=== PATIENT | male | born 1955 | race Caucasian/White ===

== ENCOUNTER 2017-01-23 17:39 | Inpatient (IN) | payer BC ==
--- NOTE | ~2017-01-23 | HP ---
History And Physical [place] [id number] [facility] [place]. [address] NAME: WANDER AMAYA : 55 STATUS : ADM IN [facility]#: [id number] AGE: 61 ADM/REG DATE : 01/23/17 MR#: [id number] REPORT SERV DATE: 01/23/17 DICTATED BY: MARIANA YANG DATE: 01/23/17 REPORT STATUS : Draft TRANSCRIBED BY: MODL DATE: 01/23/17 DATE OF ADMISSION: 01/23/2017 HISTORY OF PRESENT ILLNESS: This is a very pleasant 61-year-old male, who presented to [facility] because of severe left lower extremity cellulitis which started according to the patient yesterday. He said that it started suddenly. The whole leg is bright red and he said that he was warm to touch. He was feeling feverish and chills, although he did not measure his temperature. The patient said that he had some nausea yesterday when he ate some meat in a restaurant, but he did not have any diarrhea and his nausea resolved now. He denies any wounds on his leg. He denies any scratches or any other cuts on the leg. He had similar-type cellulitis in September when he was hospitalized under the care of Dr. Bernard, and he was discharged on October. There is an admission in September and then there is another admission in October. At that time, also he had left lower extremity cellulitis. The patient denies any chest pain. No shortness of breath. No documented fever. No rash except redness on his left lower extremity. No headache. No abdominal pain. All 14-point review of system done and negative except what is stated in the history of present illness. He did not have diarrhea as well. PAST MEDICAL HISTORY: Known for cirrhosis of the liver with chronic edema, chronically on diuretics, as well as it includes history of cerebrovascular accident in the past secondary to fall five years ago when he had cerebral hemorrhage. He had cerebral hemorrhage five years ago because he fell from bed and he had some problems with his eye on the left side, after which he had surgery on his left eye. Right now, he does not have any deficit from that cerebral hemorrhage. The patient has cirrhosis of the liver secondary to alcohol and his liver cirrhosis doctor is Dr. Nieves. Other medical problems include recurrent cellulitis, history of diarrhea, but he is on lactulose. There is a questionable history of C difficile. According to last discharge of Dr. 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 It was recommended not to be given again. At that time, the patient was discharged on Keppra, but the patient is not taking Keppra anymore and he cannot remember if he has to be on Keppra. He also reported that he did not have any seizure activity anymore. He is on midodrine for orthostatic hypotension, although he does not know why he takes this medicine. He tells that Dr. Nieves prescribed it. He has chronic thrombocytopenia secondary to liver disease. PAST SURGICAL HISTORY: Includes cholecystectomy. ALLERGIES: HE HAS INTOLERANCE OF MORPHINE. History And Physical [address] [address] NAME: WANDER AMAYA : 55 STATUS : ADM IN [facility]#: [id number] AGE: 61 ADM/REG DATE : 01/23/17 MR#: [id number] REPORT SERV DATE: 01/23/17 DICTATED BY: MARIANA YANG DATE: 01/23/17 REPORT STATUS : Draft TRANSCRIBED BY: MICHELLE DATE: 01/23/17 SOCIAL HISTORY: No history of smoking. History of alcohol abuse in the past, not using alcohol any more. Denies any use of recreational drugs, and he is not on any pain medications any more. FAMILY HISTORY: Father had skin cancer and cerebral hemorrhage. Mother had a heart attack. HOME MEDICATIONS: Include vitamin D 5000 units daily, Lasix 40 mg p.o. b.i.d., lactulose 15 mL daily, midodrine 5 mg three times, potassium chloride 20 mEq daily, and spironolactone 100 mg p.o. twice a day. PHYSICAL EXAMINATION: GENERAL: Obese male, not in acute distress, resting quietly. VITAL SIGNS: Blood pressure 141/72, temperature 97.9, heart rate 95, respiratory rate 20, and oxygen saturation 97% on room air. HEENT: Head atraumatic, normocephalic. Conjunctivae clear. Pupils are equal and reactive to light and accommodation. Extraocular muscles are intact. NECK: Supple. Trachea is midline. No supraclavicular or cervical lymphadenopathy. LUNGS: Clear to auscultation bilaterally with slightly decreased respiratory effort. CARDIOVASCULAR SYSTEM: Regular rate and rhythm. Point of maximal impulse not displaced. ABDOMEN: Obese soft, nontender, nondistended. Positive normoactive bowel sounds. EXTREMITIES: Left lower extremity, severe erythema on the left lower extremity starting from the upper leg going down to the whole leg and it is slightly warm to touch. The foot does not have much erythema. There is 2+ pedal pulse. Right leg looks normal. PSYCHIATRIC: Normal mood and affect. NEUROLOGIC: Awake, alert, and oriented in time, place, and person. Muscle strength is 5/5 bilaterally on upper and lower extremities. SKIN: Normal color and turgor. LABORATORY RESULTS: White count 5.4, hemoglobin 14.1, hematocrit 41.2, and platelet count 39,000. Sodium 138, potassium 4.4, chloride 106, carbon dioxide 24, BUN 25, creatinine 1.08, blood sugar 112. Albumin 2.9, ALT 36, AST 56, total bilirubin 2.1. Lactate level was 2.3. Also, the patient had bilateral lower extremity ultrasound done in the emergency room, and I was given a verbal report by nurse practitioner, Melly, that it was negative for DVT. ASSESSMENT AND PLAN: This is a very pleasant 61-year-old male with a past medical history of cirrhosis of the liver, chronic thrombocytopenia, chronic edema, presented with: 1. Recurrent left lower extremity cellulitis. 2. Chronic thrombocytopenia. 3. Cirrhosis of the liver being compensated. a. We will admit the patient to the hospital. Blood cultures are already drawn. We will check his procalcitonin level, and we will start him on intravenous antibiotics, vancomycin, and Zosyn and dosing per Pharmacy. b. We will also recommend the patient to keep left lower extremity elevated. If the patient's cellulitis will not improve since this is recurrent cellulitis, may consider ID consult. History And Physical [address] [place]. [address] NAME: WANDER AMAYA: 55 STATUS : ADM IN PAT#: [id number] AGE: 61 ADM/REG DATE : 01/23/17 MR#: [id number] REPORT SERV DATE: 01/23/17 DICTATED BY: MARIANA YANG DATE: 01/23/17 REPORT STATUS : Draft TRANSCRIBED BY: MICHELLE DATE: 01/23/17 4. Cirrhosis of the liver, currently compensated. We will continue the patient's diuretics and spironolactone. 5. Chronic thrombocytopenia. The patient is not a candidate for deep venous thrombosis prophylaxis secondary to chronic thrombocytopenia. We will monitor his platelet count. He does not have any obvious bleeding. We will also check his PT, PTT, and INR. 6. Questionable history of Clostridium difficile, although the patient did not recall that he had any Clostridium difficile. He is on lactulose, so monitor his stools being on antibiotics and avoid Flagyl with a history of seizure activity in the past. He did not have seizures for the last three months and he was not on Keppra. We will put him on seizure precautions and monitor him closely. My partner will see this patient starting tomorrow morning. MG/MODL Mariana Yang M.D. / [id number] CC: Ry Trejo M.D. NO PCP
--- NOTE | ~2017-01-23 | DS ---
Discharge Summary [place] [id number] [place]. [address] NAME: WANDER AMAYA : 55 STATUS : DIS IN PAT#: [id number] AGE: 61 ADM/REG DATE : 01/23/17 MR#: [id number] REPORT SERV DATE: 01/29/17 DICTATED BY: JAYESH HILTON DATE: 01/28/17 REPORT STATUS : Draft TRANSCRIBED BY: MICHELLE DATE: 01/28/17 ADMISSION DATE: 01/23/2017 DISCHARGE DATE: 01/28/2017 PRINCIPAL DIAGNOSIS: Left lower extremity cellulitis complicated by subcutaneous hemorrhage. SECONDARY DIAGNOSIS: Cirrhosis with pancytopenia including thrombocytopenia and coagulopathy. HISTORY OF PRESENT ILLNESS: Please see Dr. Tse's dictation, 01/23/2017. HOSPITAL COURSE: Admitted with severe cellulitis with severe ecchymoses and erythema of his left lower extremity. The patient received intravenous antibiotics clindamycin and Ancef. Resolution of fevers and improvement in the swelling. However, the ecchymosis persisted and was felt to be due to subcutaneous hemorrhage due to thrombocytopenia and coagulopathy. The patient actually was doing better, was able to ambulate. He was fever free. Leukocytosis was better. He had completed five days of intravenous antibiotics. He was converted to p.o. Duricef. However, at the advice of Infectious Disease, recommended to take long-term penicillin VK for suppressive therapy in the setting of his suspected impaired immune function and high risk for recurrent episodes. He will follow up with Dr. Babb in four weeks, continuing his home medications with Duricef for two additional days, penicillin VK after that indefinitely, also the following medications, Mag-Ox, potassium, lactulose, Florastor, ProAmatine, Lasix b.i.d., vitamin D supplements. Also, it should be noted that the patient received home health physical therapy and home health nursing. DICTATED BY: Kenneth Irvin/MICHELLE Jayesh Hilton M.D. / [id number] CC: Jayesh Hilton M.D. Moiz Babb M.D.
[2017-01-23 17:15] LABS: BASOPHILS 0 %; EOSINOPHILS 0.2 %; EOSINOPHILS ABSOLUTE 0.01 10/3/uL (0.0-0.53); ER CBC TAT 0 Hrs 07 Mins; HEMOGLOBIN 14.1 g/dL (13.6-17.8); IMMATURE GRANULOCYTES 0.4 %; IMMATURE GRANULOCYTES ABSOLUTE 0.02 10/3/uL (0.0-0.11); LYMPHOCYTES 8.8 %; LYMPHOCYTES ABSOLUTE 0.47 10/3/uL (0.67-4.30); MEAN CORPUS HGB CONC 34.2 g/dL (32.0-36.0); MEAN CORPUSCULAR HEMOGLOB 32.8 pg (26.0-34.0); MEAN CORPUSCULAR VOLUME 95.8 fL (80-100); MEAN PLATELET VOLUME 10.8 fL (9.2-13.0); MONOCYTES 5.2 %; MONOCYTES ABSOLUTE 0.28 10/3/uL (0.21-1.20); NEUTROPHILS 85.4 %; NEUTROPHILS ABSOLUTE 4.57 10/3/uL (2.02-8.40); RBC DISTRIBUTION WIDTH 15.3 % (12.0-16.0); WHITE BLOOD CELLS 5.4 10/3/uL (4.5-10.5)
[2017-01-23 17:31] LABS: A/G RATIO 0.8 (0.7-1.9); ALBUMIN 2.9 G/DL (3.5-5.0); ALKALINE PHOSPHATASE 76 U/L (45-117); CALCIUM, SERUM 8.8 MG/DL (8.5-10.4); CHLORIDE, SERUM 106 MMOL/L (96-112); CO2 (CARBON DIOXIDE) 24 MMOL/L (24-34); CREATININE 1.08 MG/DL (0.70-1.30); GFR AFRICAN AMERICAN 85 ML/MIN (>=60); GFR NON AFRICAN AMERICAN 74 ML/MIN (>=60); GLOBULIN 3.7 G/DL (2.5-4.1); GLUCOSE, SERUM 112 MG/DL (60-99); POTASSIUM, SERUM 4.4 MMOL/L (3.5-5.3); SGOT(AST) 56 U/L (5-40); SGPT(ALT) 36 U/L (5-65); SODIUM, SERUM 138 MMOL/L (135-148); TOTAL PROTEIN 6.6 G/DL (6.0-8.5)
[2017-01-23 17:33] LABS: BUN (BLOOD UREA NITROGEN) 25 MG/DL (6-23); TOTAL BILIRUBIN 2.1 MG/DL (0-1.2)
[2017-01-23 17:35] LABS: LACTATE 2.3 MMOL/L (0.3-2.4)
[2017-01-23 17:38] LABS: HEMATOCRIT 41.2 % (40.0-51.0)
[2017-01-23 17:39] LABS: PLATELET COUNT 39 10/3/uL (150-400)
[~2017-01-23 17:39] MED LIST: AFRIN15 NAS; AMOXIL500 MG PO; AMOXIL500C PO; ANTIBIOTIC; ATV.5 PO; ATV1 PO; BACDS PO; BUM5 PO; CENTRUM TAB1 TAB PO; D 5000 PO; DURICEF; DURICEF PO; ENULOSE; ENULOSE PO; FLAG500TAB PO; FLORASTOR250 MG PO; GENERLAC PO; K500 PO; KEPPRA1000 MG PO; KLOR-CON M2020 MEQ PO; L40 PO; L80 PO; LEVAQUIN750 MG PO; LIDOCAINE JELLY 2% T; LOM PO; LOP25 PO; NEUR300 PO; NYSTOP100000 MG TOP; OCEAN NAS; OTC ANTIHISTAMINE PO; OTC NASAL SPRAY NAS; OXYCOD PO; PENVK250 PO; POTASSIUM PO; PROAMAT5 PO; ROXICODONE15 MG PO; SPIR100 PO; SPIRO50 PO; UNABLE TO RECALL; VANCOCIN PO; VANCOMYCIN PO; VITAMIN D31000 UNIT PO; VSL #3 PO; Vitamin D 5
[2017-01-23 17:40] LABS: MANUAL DIFF NO %
[2017-01-23 18:02] LABS: RBC MORPHOLOGY NORM (NORMAL)
[2017-01-23 20:15] LABS: INTERNATIONAL NORMAL RATI 1.6 UNITS (-); PROTIME (NOT ORD) 19.2 SEC (12.0-14.5)
[2017-01-23 20:16] LABS: PARTIAL THROMBO TIME 34.3 SEC (22.5-37.2)
[2017-01-23 20:25] LABS: ASCORBIC ACID (UR NOT ORDER) NEG (NEG); BILIRUBIN, URINE NEGATIVE (NEG); KETONE, URINE NEGATIVE (NEG); LEUKOCYTE ESTERASE(NOT OR NEG (NEG); WBC (NOT ORDERED) (RFLEX) 1 (0-5)
[2017-01-23 20:38] LABS: PROCALCITONIN 0.21 ng/mL (<0.5)
[2017-01-24 07:08] LABS: BASOPHILS 0.2 %; BASOPHILS ABSOLUTE 0.01 10/3/uL (0.0-0.16); EOSINOPHILS 2.9 %; EOSINOPHILS ABSOLUTE 0.15 10/3/uL (0.0-0.53); HEMATOCRIT 38.1 % (40.0-51.0); HEMOGLOBIN 13.2 g/dL (13.6-17.8); IMMATURE GRANULOCYTES 0.4 %; IMMATURE GRANULOCYTES ABSOLUTE 0.02 10/3/uL (0.0-0.11); LYMPHOCYTES 12.4 %; LYMPHOCYTES ABSOLUTE 0.63 10/3/uL (0.67-4.30); MEAN CORPUS HGB CONC 34.6 g/dL (32.0-36.0); MEAN CORPUSCULAR HEMOGLOB 32.8 pg (26.0-34.0); MEAN CORPUSCULAR VOLUME 94.5 fL (80-100); MEAN PLATELET VOLUME 10.8 fL (9.2-13.0); MONOCYTES 5.7 %; MONOCYTES ABSOLUTE 0.29 10/3/uL (0.21-1.20); NEUTROPHILS 78.4 %; NEUTROPHILS ABSOLUTE 3.99 10/3/uL (2.02-8.40); RBC DISTRIBUTION WIDTH 15.6 % (12.0-16.0); RED CELL COUNT 4.03 10/6/uL (4.7-6.1); WHITE BLOOD CELLS 5.1 10/3/uL (4.5-10.5)
[2017-01-24 07:10] LABS: MANUAL DIFF NO %; PLATELET COUNT 38 10/3/uL (150-400)
[2017-01-24 07:14] LABS: BUN (BLOOD UREA NITROGEN) 24 MG/DL (6-23); CALCIUM, SERUM 8.4 MG/DL (8.5-10.4); CHLORIDE, SERUM 107 MMOL/L (96-112); CO2 (CARBON DIOXIDE) 22 MMOL/L (24-34); CREATININE 1.14 MG/DL (0.70-1.30); GFR AFRICAN AMERICAN 80 ML/MIN (>=60); GFR NON AFRICAN AMERICAN 69 ML/MIN (>=60); GLUCOSE, SERUM 95 MG/DL (60-99); POTASSIUM, SERUM 4.1 MMOL/L (3.5-5.3); SODIUM, SERUM 139 MMOL/L (135-148)
[2017-01-24 07:35] LABS: RBC MORPHOLOGY NORM (NORMAL)
[2017-01-24 16:12] LABS: BASOPHILS 0.2 %; BASOPHILS ABSOLUTE 0.01 10/3/uL (0.0-0.16); EOSINOPHILS 2.5 %; EOSINOPHILS ABSOLUTE 0.16 10/3/uL (0.0-0.53); HEMATOCRIT 40.2 % (40.0-51.0); HEMOGLOBIN 13.9 g/dL (13.6-17.8); IMMATURE GRANULOCYTES 0.2 %; IMMATURE GRANULOCYTES ABSOLUTE 0.01 10/3/uL (0.0-0.11); LYMPHOCYTES 16.9 %; LYMPHOCYTES ABSOLUTE 1.07 10/3/uL (0.67-4.30); MEAN CORPUS HGB CONC 34.6 g/dL (32.0-36.0); MEAN CORPUSCULAR VOLUME 95.5 fL (80-100); MEAN PLATELET VOLUME 11.2 fL (9.2-13.0); MONOCYTES 5.5 %; MONOCYTES ABSOLUTE 0.35 10/3/uL (0.21-1.20); NEUTROPHILS 74.7 %; NEUTROPHILS ABSOLUTE 4.75 10/3/uL (2.02-8.40); RBC DISTRIBUTION WIDTH 15.4 % (12.0-16.0); RED CELL COUNT 4.21 10/6/uL (4.7-6.1); WHITE BLOOD CELLS 6.4 10/3/uL (4.5-10.5)
[2017-01-24 16:13] LABS: MANUAL DIFF NO %; PLATELET COUNT 45 10/3/uL (150-400)
[2017-01-25 05:23] LABS: BASOPHILS 0.3 %; BASOPHILS ABSOLUTE 0.02 10/3/uL (0.0-0.16); EOSINOPHILS 2.8 %; EOSINOPHILS ABSOLUTE 0.19 10/3/uL (0.0-0.53); HEMOGLOBIN 13.1 g/dL (13.6-17.8); IMMATURE GRANULOCYTES 0.3 %; IMMATURE GRANULOCYTES ABSOLUTE 0.02 10/3/uL (0.0-0.11); LYMPHOCYTES 21.9 %; LYMPHOCYTES ABSOLUTE 1.48 10/3/uL (0.67-4.30); MANUAL DIFF NO %; MEAN CORPUS HGB CONC 34.5 g/dL (32.0-36.0); MEAN CORPUSCULAR HEMOGLOB 32.8 pg (26.0-34.0); MEAN PLATELET VOLUME 10.4 fL (9.2-13.0); MONOCYTES 10.5 %; MONOCYTES ABSOLUTE 0.71 10/3/uL (0.21-1.20); NEUTROPHILS 64.2 %; NEUTROPHILS ABSOLUTE 4.35 10/3/uL (2.02-8.40); PLATELET COUNT 43 10/3/uL (150-400); RBC DISTRIBUTION WIDTH 15.3 % (12.0-16.0); WHITE BLOOD CELLS 6.8 10/3/uL (4.5-10.5)
[2017-01-25 05:37] LABS: A/G RATIO 0.8 (0.7-1.9); ALBUMIN 2.5 G/DL (3.5-5.0); ALKALINE PHOSPHATASE 68 U/L (45-117); BUN (BLOOD UREA NITROGEN) 22 MG/DL (6-23); CALCIUM, SERUM 8.4 MG/DL (8.5-10.4); CHLORIDE, SERUM 110 MMOL/L (96-112); CREATININE 1.25 MG/DL (0.70-1.30); GFR AFRICAN AMERICAN 72 ML/MIN (>=60); GFR NON AFRICAN AMERICAN 62 ML/MIN (>=60); GLOBULIN 3.3 G/DL (2.5-4.1); GLUCOSE, SERUM 100 MG/DL (60-99); POTASSIUM, SERUM 3.9 MMOL/L (3.5-5.3); SGOT(AST) 50 U/L (5-40); SGPT(ALT) 31 U/L (5-65); TOTAL PROTEIN 5.8 G/DL (6.0-8.5)
[2017-01-25 05:38] LABS: CO2 (CARBON DIOXIDE) 28 MMOL/L (24-34); SODIUM, SERUM 132 MMOL/L (135-148); TOTAL BILIRUBIN 1.1 MG/DL (0-1.2)
[2017-01-25 05:51] LABS: RBC MORPHOLOGY NORM (NORMAL)
[2017-01-26 03:56] LABS: BASOPHILS 0.3 %; BASOPHILS ABSOLUTE 0.02 10/3/uL (0.0-0.16); EOSINOPHILS 4.2 %; EOSINOPHILS ABSOLUTE 0.32 10/3/uL (0.0-0.53); HEMATOCRIT 38.8 % (40.0-51.0); HEMOGLOBIN 13.8 g/dL (13.6-17.8); IMMATURE GRANULOCYTES 0.8 %; IMMATURE GRANULOCYTES ABSOLUTE 0.06 10/3/uL (0.0-0.11); LYMPHOCYTES 23.4 %; LYMPHOCYTES ABSOLUTE 1.77 10/3/uL (0.67-4.30); MEAN CORPUS HGB CONC 35.6 g/dL (32.0-36.0); MEAN CORPUSCULAR HEMOGLOB 33.4 pg (26.0-34.0); MEAN CORPUSCULAR VOLUME 93.9 fL (80-100); MEAN PLATELET VOLUME 11.2 fL (9.2-13.0); MONOCYTES 14.7 %; MONOCYTES ABSOLUTE 1.11 10/3/uL (0.21-1.20); NEUTROPHILS 56.6 %; NEUTROPHILS ABSOLUTE 4.27 10/3/uL (2.02-8.40); PLATELET COUNT 54 10/3/uL (150-400); RBC DISTRIBUTION WIDTH 15.2 % (12.0-16.0); RED CELL COUNT 4.13 10/6/uL (4.7-6.1); WHITE BLOOD CELLS 7.6 10/3/uL (4.5-10.5)
[2017-01-26 04:00] LABS: MANUAL DIFF NO %
[2017-01-26 04:22] LABS: PLATELET ESTIMATE DEC (ADEQUATE)
[2017-01-26 04:24] LABS: RBC MORPHOLOGY NORM (NORMAL)
[2017-01-28 06:57] LABS: BASOPHILS 0.8 %; BASOPHILS ABSOLUTE 0.06 10/3/uL (0.0-0.16); EOSINOPHILS 4.6 %; EOSINOPHILS ABSOLUTE 0.33 10/3/uL (0.0-0.53); HEMATOCRIT 42.3 % (40.0-51.0); HEMOGLOBIN 14.9 g/dL (13.6-17.8); IMMATURE GRANULOCYTES 3.5 %; IMMATURE GRANULOCYTES ABSOLUTE 0.25 10/3/uL (0.0-0.11); LYMPHOCYTES 31.7 %; LYMPHOCYTES ABSOLUTE 2.26 10/3/uL (0.67-4.30); MEAN CORPUS HGB CONC 35.2 g/dL (32.0-36.0); MEAN CORPUSCULAR HEMOGLOB 32.9 pg (26.0-34.0); MEAN CORPUSCULAR VOLUME 93.4 fL (80-100); MEAN PLATELET VOLUME 11.3 fL (9.2-13.0); MONOCYTES 15.7 %; MONOCYTES ABSOLUTE 1.12 10/3/uL (0.21-1.20); NEUTROPHILS 43.7 %; RBC DISTRIBUTION WIDTH 14.7 % (12.0-16.0); RED CELL COUNT 4.53 10/6/uL (4.7-6.1); WHITE BLOOD CELLS 7.1 10/3/uL (4.5-10.5)
[2017-01-28 07:00] LABS: MANUAL DIFF NO %; PLATELET COUNT 72 10/3/uL (150-400)
[2017-01-28 07:12] LABS: A/G RATIO 0.7 (0.7-1.9); ALBUMIN 2.9 G/DL (3.5-5.0); ALKALINE PHOSPHATASE 81 U/L (45-117); BUN (BLOOD UREA NITROGEN) 25 MG/DL (6-23); CALCIUM, SERUM 9.5 MG/DL (8.5-10.4); CHLORIDE, SERUM 96 MMOL/L (96-112); CO2 (CARBON DIOXIDE) 32 MMOL/L (24-34); CREATININE 1.28 MG/DL (0.70-1.30); GFR AFRICAN AMERICAN 70 ML/MIN (>=60); GFR NON AFRICAN AMERICAN 60 ML/MIN (>=60); GLOBULIN 4.1 G/DL (2.5-4.1); GLUCOSE, SERUM 98 MG/DL (60-99); POTASSIUM, SERUM 4.7 MMOL/L (3.5-5.3); SGOT(AST) 37 U/L (5-40); SGPT(ALT) 14 U/L (5-65); SODIUM, SERUM 133 MMOL/L (135-148); TOTAL BILIRUBIN 2.3 MG/DL (0-1.2)
[2017-01-28 07:30] LABS: PLATELET ESTIMATE DEC (ADEQUATE); RBC MORPHOLOGY NORM (NORMAL)
[2017-01-28] MEDS ORDERED: DURICEF PO (11:04)
[2017-01-28] MEDS ORDERED: PENICILLN VK500 MG PO (11:05)
[2017-01-28] MEDS ORDERED: MAGOX4 PO (11:05)
[2017-01-28] MEDS ORDERED: FLORASTOR250 MG PO (11:06)
== END 2017-01-28 16:03 | disposition home or self-care (01) | DRG 603 ==
LOC: ER 17:39 → 4SO 18:33
PROVIDERS: Hospitalist; Internal Medicine; Internal Medicine Infectious Disease; Nurse Practitioner; Physician Assistant
DX: L03.116 Cellulitis of left lower limb (principal); D61.818 Other pancytopenia; D69.59 Other secondary thrombocytopenia; K70.30 Alcoholic cirrhosis of liver without ascites; F10.21 Alcohol dependence, in remission; G40.909 Epilepsy, unspecified, not intractable, without status epilepticus; Z88.5 Allergy status to narcotic agent; I95.1 Orthostatic hypotension; R58 Hemorrhage, not elsewhere classified; B95.5 Unspecified streptococcus as the cause of diseases classified elsewhere; I87.8 Other specified disorders of veins; Z87.820 Personal history of traumatic brain injury; E66.9 Obesity, unspecified; Z68.34 Body mass index [BMI] 34.0-34.9, adult; G89.29 Other chronic pain
CPT/HCPCS: 80048; 80053; 81001; 82140; 83605; 83735; 84145; 85025; 85610; 85730; 87040; 93971; 96374; 97161-GP; 99284; A9270-GY; J0690; J1170; J2405; J2543; J3370